=== PATIENT | female | born 1985 ===

== ENCOUNTER → 2021-01-18 | Outpatient (CLI) | payer OTHER | END | disposition home or self-care (01) | LOC: PRENATAL 10:45 | PROVIDERS: ATTEND Obstetrics & Gynecology Maternal & Fetal Medicine | DX: O35.0XX1 Maternal care for (suspected) central nervous system malformation in fetus, fetus 1 (principal); O35.3XX1 Maternal care for (suspected) damage to fetus from viral disease in mother, fetus 1; O98.512 Other viral diseases complicating pregnancy, second trimester; Z36.89 Encounter for other specified antenatal screening; Z3A.21 21 weeks gestation of pregnancy ==

== ENCOUNTER 2021-05-18 05:44 | Inpatient (IN) | payer OTHER ==
[~2021-05-18] VITALS: Ht 157.5 cm; Wt 125.2 kg
[2021-05-18] MEDS ORDERED: PRENATAL CAPLE1 EAC1 PO (07:35)
== END 2021-05-21 12:38 | disposition home or self-care (01) | DRG 788 ==
LOC: LDR 05:44 → O/R 05:44 → OB/GYN 17:05
PROVIDERS: ADMIT Obstetrics & Gynecology; ATTEND Obstetrics & Gynecology
PROC: 4A1HXFZ Monitoring of Products of Conception, Cardiac Rhythm, External Approach (ICD-10-PCS; 2021-05-18)
PROC: 3E033VJ Introduction of Other Hormone into Peripheral Vein, Percutaneous Approach (ICD-10-PCS; 2021-05-18)
PROC: 10D00Z1 Extraction of Products of Conception, Low, Open Approach (ICD-10-PCS; principal; 2021-05-18 21:30)
DX: O65.8 Obstructed labor due to other maternal pelvic abnormalities (principal); O76 Abnormality in fetal heart rate and rhythm complicating labor and delivery; Z3A.39 39 weeks gestation of pregnancy; Z37.0 Single live birth

== ENCOUNTER 2022-03-05 19:47 | Emergency (ER) | payer OTHER ==
[~2022-03-05] VITALS: Ht 157.5 cm; Wt 106.1 kg
[~2022-03-05 19:47] MED LIST: PRENATAL CAPLE1 EAC1 PO
[2022-03-06] MEDS ORDERED: PEPCID40 MG PO (02:10)
[2022-03-06] MEDS ORDERED: CEPHALEXIN500 MG PO (02:10)
== END 2022-03-06 02:14 ==
LOC: ER 19:47
DX: O20.8 Other hemorrhage in early pregnancy (principal); O26.851 Spotting complicating pregnancy, first trimester; O23.41 Unspecified infection of urinary tract in pregnancy, first trimester; N39.0 Urinary tract infection, site not specified; O34.81 Maternal care for other abnormalities of pelvic organs, first trimester; N83.292 Other ovarian cyst, left side; Z3A.08 8 weeks gestation of pregnancy; Z91.013 Allergy to seafood

== ENCOUNTER 2022-05-30 15:39 | Outpatient (CLI) | payer OTHER ==
[~2022-05-30 15:39] MED LIST changes: +CEPHALEXIN500 MG PO; +PEPCID40 MG PO
== END 2022-05-30 17:48 | disposition home or self-care (01) ==
LOC: PRENATAL 15:39
PROVIDERS: ATTEND Obstetrics & Gynecology Maternal & Fetal Medicine
DX: O35.9XX0 Maternal care for (suspected) fetal abnormality and damage, unspecified, not applicable or unspecified (principal); O34.219 Maternal care for unspecified type scar from previous cesarean delivery; O99.210 Obesity complicating pregnancy, unspecified trimester; Z3A.21 21 weeks gestation of pregnancy

== ENCOUNTER 2022-08-16 14:58 | Outpatient (CLI) | payer OTHER | END 2022-08-16 15:44 | disposition home or self-care (01) | LOC: PRENATAL 14:58 | PROVIDERS: ATTEND Obstetrics & Gynecology Maternal & Fetal Medicine | DX: O26.849 Uterine size-date discrepancy, unspecified trimester (principal); O35.9XX0 Maternal care for (suspected) fetal abnormality and damage, unspecified, not applicable or unspecified; O36.8199 Decreased fetal movements, unspecified trimester, other fetus; O09.529 Supervision of elderly multigravida, unspecified trimester; O34.219 Maternal care for unspecified type scar from previous cesarean delivery; O99.210 Obesity complicating pregnancy, unspecified trimester; Z3A.32 32 weeks gestation of pregnancy ==

== ENCOUNTER 2022-09-28 07:45 | Inpatient (IN) | payer OTHER ==
[~2022-09-28] VITALS: Ht 152.4 cm; Wt 3.6 kg
== END 2022-10-01 15:00 | disposition home or self-care (01) | DRG 785 ==
LOC: LDR 07:45 → OB/GYN 15:23
PROVIDERS: ADMIT Obstetrics & Gynecology; ATTEND Obstetrics & Gynecology
PROC: 0UB70ZZ Excision of Bilateral Fallopian Tubes, Open Approach (ICD-10-PCS; 2022-09-28)
PROC: 4A1HXCZ Monitoring of Products of Conception, Cardiac Rate, External Approach (ICD-10-PCS; 2022-09-28)
PROC: 10D00Z1 Extraction of Products of Conception, Low, Open Approach (ICD-10-PCS; principal; 2022-09-28 13:45)
DX: O34.211 Maternal care for low transverse scar from previous cesarean delivery (principal); Z3A.38 38 weeks gestation of pregnancy; O99.824 Streptococcus B carrier state complicating childbirth; Z30.2 Encounter for sterilization; Z37.0 Single live birth; Z20.822 Contact with and (suspected) exposure to COVID-19

== ENCOUNTER 2022-10-31 21:17 | Emergency (ER) | payer OTHER ==
[~2022-10-31] VITALS: Ht 157.5 cm; Wt 108.9 kg
[2022-11-01] MEDS ORDERED: PEPCID40 MG PO (04:22)
[2022-11-01] MEDS ORDERED: ONDANSETRON ODT4 MG PO (04:22)
== END 2022-11-01 04:26 ==
LOC: ER 21:17
DX: R10.13 Epigastric pain (principal); R07.9 Chest pain, unspecified; Z91.013 Allergy to seafood